=== PATIENT | female | born 1995 | race African-American/Black ===

== ENCOUNTER 2017-02-11 19:16 | Observation (INO) | payer MEDICAID ==
[~2017-02-11] VITALS: Ht 157.5 cm; Wt 100.2 kg
[2017-02-11] MEDS ORDERED: PREN-88 PO (19:52)
[2017-02-11] MEDS ORDERED: FERR-63 PO (19:52)
== END 2017-02-11 20:15 | disposition home or self-care (01) ==
LOC: L&D 19:16
PROVIDERS: ADMIT Obstetrics & Gynecology; ATTEND Obstetrics & Gynecology
DX: O26.899 Other specified pregnancy related conditions, unspecified trimester (principal); R10.9 Unspecified abdominal pain; Z3A.00 Weeks of gestation of pregnancy not specified
CPT/HCPCS: 99281; G0378